=== PATIENT | male | born 1955 | race Hispanic/Latino ===

== ENCOUNTER 2017-09-14 17:24 | Emergency (ER) | payer OTHER ==
[2017-09-14] MEDS ORDERED: ZOFRAN IV ONE (18:31)
[2017-09-14] MEDS ORDERED: MORPHINE IV ONE (18:31)
[2017-09-14] MEDS ORDERED: BOOSTRIX IM ONE (18:31)
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
--- NOTE | 2017-09-14 20:14 | Cat Scan Report ---
FINAL REPORT PROCEDURE: CT HEAD/BRAIN WO CON TECHNIQUE: Computerized tomography of the head was performed without contrast material. HISTORY: trauma COMPARISON: No prior studies are available for comparison. FINDINGS: There is no evidence of intracranial hemorrhage. The ventricles sulcal pattern and fissures mildly prominent consistent with mild atrophy. There is mild decreased density in the periventricular white matter without mass effect consistent with gliosis probably on the basis of microvascular disease or white matter changes of aging. No abnormal extra-axial fluid collections are seen. There is an acute fracture visualized through the anterior wall of the left frontal sinus. This is moderately depressed. There is also a fracture through roof of the left orbit. Bone fragments from the orbital fracture appear to be moderately displaced. There is some gas entering the left orbit likely from the orbit fracture. The globe of the left orbit appears intact. There is a small amount of fluid in the left frontal sinus likely secondary to the fracture and hemorrhage. Small amount of patchy density present in a few of the left anterior ethmoid air cells. Visualized paranasal sinuses otherwise are clear. The mastoid air cells are clear. There is a scalp hematoma overlying the left side of the forehead which is partially obscured secondary to positioning of the patient. There is some gas in the adjacent soft tissues which may be due to the frontal sinus fracture or related to scalp laceration. IMPRESSION: Moderately depressed fracture anterior wall left frontal sinus. Fracture line extends into the roof of the left orbit therefore intracranial. I do not see evidence of intracranial hemorrhage. CT scan of the facial bones recommended for improved visualization of the orbit fracture. A small amount of fluid is present in the left frontal sinus and a few of the left ethmoid air cells likely hemorrhage secondary to the fractures. Critical value: Findings of this exam were discussed in detail with Dr. Darling on 09/14/2017 at 8:03 p.m. Eastern standard time.
--- NOTE | 2017-09-14 20:24 | Cat Scan Report ---
FINAL REPORT PROCEDURE: CT CERVICAL SPINE WO CON TECHNIQUE: Computerized tomography of the cervical spine was performed from the skull base to T1 without contrast material. HISTORY: trauma COMPARISON: No prior studies are available for comparison. FINDINGS: No fracture or subluxation is seen. The prevertebral soft tissues appear normal. There is moderate osteoarthritic change at the articulation of the anterior ring of C1 and the dens. The anterior ring of C1 and the dens both appear to be intact. There is marked disc space narrowing of the C6-C7 disc space. Anterior posterior osteophytic spurs are present at this level. There also minimal posterior osteophytic spurs at C2-3, C3-4 levels. Anterior osteophytic spurring is visualized C4-5 and C5-6 disc spaces. The posterior osteophytic spurs appear to be causing mild impressions on the anterior epidural space. No focal disc herniation or spinal stenosis is visualized. Mild facet arthritis visualized through the articular facets on the right of the cervical spine, mild to moderate changes are visualized C4-5 and C5-6. Moderate facet arthritis visualized on the left at C2-3, C3-4, C4-5 and milder changes seen throughout the remainder of the cervical spine. Calcifications are seen in the smith of the carotid arteries indicating atherosclerotic disease. IMPRESSION: Degenerative disc disease and facet arthritis is present. Degenerative changes also seen between the articulation of the anterior ring of C1 and the dens. No fracture or subluxation is seen. No spinal stenosis is identified. Atherosclerosis carotid arteries bilaterally..
[2017-09-14 21:05] VITALS: BP 130/82
--- NOTE | 2017-09-14 21:20 | Cat Scan Report ---
FINAL REPORT PROCEDURE: CT FACIAL BONES WO CON TECHNIQUE: Computerized tomography of the facial bones and soft tissues with axial and coronal sections performed from the cranial aspect of the frontal sinuses to the caudal portion of the mandible without contrast material. HISTORY: trauma COMPARISON: Prior CT scan of the brain earlier today FINDINGS: There is a mildly comminuted depressed fracture of the anterior wall of the left frontal sinus. The outer wall is displaced into the lumen of the frontal sinus. A fracture line continues posteriorly through the roof of the left orbit into the left frontal fossa. A small amount of intracranial gas is visualized. This is visualized on image 32 series 601 coronal image and axial image 126 series 3. The fracture line is visualized through the floor of the left frontal fossa, roof of the left orbit on images 26-34 series 601 coronal reconstruction. A fragment of bone measuring 12 millimeters from the roof of the left orbit is mildly rotated best visualized on sagittal reconstruction image [id number]. The rotated fragment extends into the superior aspect of the left orbit. No definite intra-ocular muscular impingement. Small collection a gas from the fracture through the left frontal sinus extends into the left orbit superiorly. The globe of the left orbit appears intact. There is fluid and mucosal thickening in the left frontal sinus suggesting hemorrhage and inflammation from the fracture. The zygomatic arches and zygomas are intact. The nasal bone is intact. There is a moderate-sized scalp hematoma overlying the left side of the forehead. There is gas in the soft tissues adjacent to the hematoma likely originating from the left frontal sinus. I cannot exclude a laceration or penetrating injury per no radiopaque foreign bodies are identified. IMPRESSION: Depressed mildly comminuted fracture anterior wall left frontal sinus with fracture line extending through the roof of the left orbit into the left frontal fossa. A small amount of intracranial gas and intra-ocular gas is present likely originating from the frontal sinus. No intracranial hemorrhage or parenchymal contusion is visualized. No definite intra-ocular muscular impingement. Fluid and mucosal thickening seen in the left frontal sinus likely representing hemorrhage and edema secondary to the fracture. Moderate scalp hematoma seen overlying the left side of the forehead with a small amount of gas within the hematoma. Please see above comments.
== END 2017-09-14 23:10 | disposition home or self-care (01) ==
LOC: ED 17:24
DX: S06.0X0A Concussion without loss of consciousness, initial encounter (principal); S02.19XA Other fracture of base of skull, initial encounter for closed fracture; V27.4XXA Motorcycle driver injured in collision with fixed or stationary object in traffic accident, initial encounter; I10 Essential (primary) hypertension; Y93.89 Activity, other specified; Y92.89 Other specified places as the place of occurrence of the external cause; Y99.8 Other external cause status
CPT/HCPCS: 70450; 70486; 72125; 90471; 90715; 96374; 96375; 99284; J2270; J2405

== ENCOUNTER 2017-12-05 16:57 | Emergency (ER) | payer OTHER ==
[2017-12-05 17:05] VITALS: BP 137/89
[2017-12-05] MEDS ORDERED: ULTRAM PO ONE (20:31)
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
--- NOTE | 2017-12-05 21:45 | Cat Scan Report ---
FINAL REPORT EXAM: CT HEAD/BRAIN WO CON HISTORY: fall TECHNIQUE: 2.5 millimeter axial images from the skullbase to the vertex. Comparison: Head CT dated September 14, [address] face also performed today FINDINGS: There is no evidence of an acute intracranial process, intracranial hemorrhage or mass effect. Ventricular size is concordant with the degree of atrophy. There is atherosclerotic vascular calcification of the internal carotid arteries bilaterally at the skullbase. The bony structures are notable for fractures of the anterior wall and roof of the left maxillary sinus, floor of the left anterior cranial fossa and superior orbital rim of the left orbit as was demonstrated on the previous study of September 14, 2017. There is no evidence of acute fracture. The paranasal and mastoid sinuses are without mucosal thickening or air-fluid levels. The orbital contents are unremarkable in appearance. IMPRESSION: 1. No evidence of an acute intracranial process, intracranial hemorrhage or mass effect. 2. Left facial fractures that were demonstrated on the previous study of September 14, 2017. No evidence of acute fracture.
--- NOTE | 2017-12-05 21:49 | Cat Scan Report ---
FINAL REPORT EXAM: CT CERVICAL SPINE WO CON HISTORY: fall TECHNIQUE: Axial helical imaging from the skullbase to the vertex. Comparison: CT cervical spine dated September 14, 2017. FINDINGS: Bony alignment is normal. The vertebral heights are maintained. There is loss of height of the C5-C6 disc with associated degenerative endplate change. There is degenerative change between the articulation of the anterior ring of C1 and the dens. There is multiple level degenerative facet change. There is multiple level foraminal stenosis secondary to spondylitic change. There is no evidence of significant bony canal stenosis. There is no evidence of fracture or subluxation. The paraspinous soft tissues are unremarkable. The visualized portions of the lungs are notable for evidence of pulmonary emphysema. IMPRESSION: 1. No evidence of fracture or subluxation. 2. Cervical spondylosis with multiple level foraminal stenosis. 3. Evidence of pulmonary emphysema.
--- NOTE | 2017-12-05 21:56 | Cat Scan Report ---
FINAL REPORT EXAM: CT FACIAL BONES WO CON HISTORY: fall TECHNIQUE: Axial helical imaging through the face with sagittal and coronal reformatted images obtained. Comparison: CT face dated September 14, 2017 FINDINGS: Again noted are the fractures of the anterior wall and roof of the left orbit extending superiorly into the left frontal bone, posteriorly into the left orbital roof and inferiorly into the left lateral orbital rim. The fracture lines are less conspicuous consistent with some interval healing. There is no evidence of acute facial fracture. The paranasal sinuses are without mucosal thickening or air-fluid levels. The nasal septum is midline. The orbital contents are unremarkable in appearance. IMPRESSION: 1. No evidence of acute facial fracture. 2. Evidence of interval healing of the previously demonstrated fractures of the left frontal bone, left frontal sinus, left orbit.
--- NOTE | 2017-12-05 22:02 | XRay Report ---
FINAL REPORT EXAM: XR ELBOW 3+V RT HISTORY: fall TECHNIQUE: Frontal, lateral, oblique views right elbow Comparison: None FINDINGS: There appears to be slight deformity of the anterior aspect of the right radial neck/head suggestive of fracture. There is prominence of the anterior fat pad suggestive of a joint effusion. There is no evidence of subluxation. IMPRESSION: 1. Findings suggestive of right radial head/neck fracture with evidence of joint effusion. If further imaging is required, CT may be helpful.
--- NOTE | 2017-12-05 22:07 | XRay Report ---
FINAL REPORT EXAM: XR HAND 3+V RT HISTORY: fall TECHNIQUE: Frontal, lateral, oblique views right hand Comparison: None FINDINGS: The distal aspect of the 2nd digit is obscured by overlying dressing material. There is evidence of degenerative change of the interphalangeal joints of all digits and of the metacarpophalangeal joints of 1st and 2nd digits. There is degenerative change of the thumb carpal metacarpal joint. There is no evidence of fracture or subluxation. The soft tissues are notable for a small linear radiopaque foreign body on the plantar and medial aspect of the thumb at the level of the distal phalanx. IMPRESSION: 1. Visualization of the distal aspect of the 2nd digit is obscured by overlying dressing material. 2. No evidence of fracture or subluxation. However, a fracture of the distal phalanx of the 2nd digit could be missed. 3. Degenerative joint change of the wrist and hand. 4. Radiopaque foreign body in the soft tissues of the thumb.
== END 2017-12-05 23:50 | disposition home or self-care (01) ==
LOC: ED 16:57
DX: S52.124A Nondisplaced fracture of head of right radius, initial encounter for closed fracture (principal); S01.112A Laceration without foreign body of left eyelid and periocular area, initial encounter; S61.309A Unspecified open wound of unspecified finger with damage to nail, initial encounter; S09.90XA Unspecified injury of head, initial encounter; I10 Essential (primary) hypertension; V19.9XXA Pedal cyclist (driver) (passenger) injured in unspecified traffic accident, initial encounter; Y93.89 Activity, other specified; Y99.8 Other external cause status; Y92.488 Other paved roadways as the place of occurrence of the external cause
CPT/HCPCS: 70450; 70486; 72125